=== PATIENT | female | born 1960 | race Caucasian/White ===

== ENCOUNTER 2017-09-07 19:19 | Emergency (ER) ==
[2017-09-07 19:26] VITALS: BP 111/70
== END 2017-09-07 20:35 | disposition left against medical advice (07) ==
LOC: ER 19:19
DX: Z53.21 Procedure and treatment not carried out due to patient leaving prior to being seen by health care provider (principal); M79.601 Pain in right arm

== ENCOUNTER 2017-09-08 06:11 | Emergency (ER) | payer MEDICARE, MEDICAID ==
--- NOTE | 2017-09-08 07:31 | ER Document Report ---
HPI - HPI Patient complains to provider of: Right shoulder pain Onset: Other - 3 weeks Onset/Duration: Persistent Pain Level: 4 Context: 56-year-old female complaining of persistent right shoulder pain since she fell 3 weeks ago. She is planning on going to [place] in several weeks. She lives in [place]. She had rotator cuff surgery in 2008 and is worried that she did something to her shoulder. She takes ibuprofen and Tylenol for pain. Associated Symptoms: None Exacerbated by: Movement - abduction Relieved by: Denies Similar symptoms previously: Yes Recently seen / treated by doctor: No - ROS ROS below otherwise negative: Yes Systems Reviewed and Negative: Yes All other systems reviewed and negative Past Medical History - General Information source: Patient - Social History Smoking Status: Unknown if Ever Smoked Frequency of alcohol use: None Drug Abuse: None Lives with: Family Family History: Reviewed & Not Pertinent - Medical History Medical History: Negative Past Surgical History: Reports: Hx Orthopedic Surgery - rotater cuff surgery in [place] 2008 Vertical Provider Document - CONSTITUTIONAL Agree With Documented VS: Yes Exam Limitations: No Limitations General Appearance: No Apparent Distress - INFECTION CONTROL TRAVEL OUTSIDE OF THE [place] IN LAST 30 DAYS: No - HEENT HEENT: Normocephalic - NECK Neck: Supple - RESPIRATORY O2 Sat by Pulse Oximetry: 99 - MUSCULOSKELETAL/EXTREMETIES Musculoskeletal/Extremeties: negative: Edema Notes: no deformity, limits abduction of right shoulder due to pain - NEURO Level of Consciousness: Awake, Alert, Appropriate Motor/Sensory: No Motor Deficit, No Sensory Deficit - DERM Integumentary: Warm, Dry Course - Re-evaluation Re-evalutation: 09/08/17 07:50 I looked her up on the [place] controlled substance website and she filled a prescription prescribed in [facility], for Vertussin AC 100 mL's September 06, 2017 in [facility]. She had clonazepam filled in June in [facility], prescribed in [place]. 09/08/17 08:35 X-ray is negative per radiologist - Vital Signs Vital signs: Temp Pulse Resp BP Pulse Ox 97.8 F 98 16 117/72 99 09/08/17 06:17 09/08/17 06:17 09/08/17 06:17 09/08/17 06:17 09/08/17 06:17 Discharge - Discharge Clinical Impression: chronic right shoulder pain Condition: Good Disposition: HOME, SELF-CARE Instructions: Exercise Program for the Shoulder ([facility]), Shoulder Injury ([facility]), Ultram ([facility]), Use of Zoti-Vos-Esappkg Ibuprofen ([facility]), Acetaminophen, Muscle Relaxers ([facility]) Additional Instructions: see physical therapy when you settle in [place] to get the range of motion back in your right shoulder Range of motion exercises to your right shoulders as discussed Warm compress Return to the emergency room any concerns Prescriptions: Promethazine HCl [Phenergan 25 mg Tablet] 25 mg PO Q4HP PRN #20 tablet PRN Reason: Cyclobenzaprine HCl [Flexeril 10 Mg Tablet] 10 mg PO TIDP PRN #20 tablet PRN Reason: Tramadol HCl [Ultram 50 mg Tablet] 50 mg PO ASDIR PRN #10 tablet PRN Reason:
--- NOTE | 2017-09-08 08:29 | RADIOLOGY REPORT (SQ) ---
EXAM DESCRIPTION: SHOULDER RIGHT 2 OR MORE VIEWS COMPLETED DATE/TIME: 09/08/2017 7:48 am REASON FOR STUDY: injury 3 weeks ago COMPARISON: None. NUMBER OF VIEWS: Three views. TECHNIQUE: Internal rotation, external rotation, and Y view images acquired of the right shoulder. LIMITATIONS: None. FINDINGS: MINERALIZATION: Normal. BONES: No acute fracture or dislocation. No worrisome bone lesions. JOINTS: No dislocation. VISUALIZED LUNGS AND RIBS: No pneumothorax. No rib fracture. SOFT TISSUES: Calcific tendinopathy. OTHER: No other significant finding. IMPRESSION: NO RADIOGRAPHIC EVIDENCE OF ACUTE INJURY. TECHNICAL DOCUMENTATION: JOB ID: [id number] [employer]- All Rights Reserved
[2017-09-08] MEDS ORDERED: ONDANSETRON 4 MG TAB.RAPDIS PO ONE (08:34)
[2017-09-08] MEDS ORDERED: ACETAMINOPHEN 325 MG TABLET PO ONE (08:34)
[2017-09-08] MEDS ORDERED: IBUPROFEN 800 MG TABLET PO ONE (08:34)
[2017-09-08 08:52] VITALS: BP 106/75
== END 2017-09-08 08:47 | disposition home or self-care (01) ==
LOC: ER 06:11
DX: M25.511 Pain in right shoulder (principal); W19.XXXA Unspecified fall, initial encounter; G89.29 Other chronic pain; Z98.890 Other specified postprocedural states
CPT/HCPCS: 99283; 73030; A9270 ×3; S0119

== ENCOUNTER 2017-10-05 14:55 | Emergency (ER) | payer MEDICARE, MEDICAID | END 2017-10-05 15:40 | disposition left against medical advice (07) | LOC: ER 14:55 | DX: Z53.21 Procedure and treatment not carried out due to patient leaving prior to being seen by health care provider (principal) ==

== ENCOUNTER 2017-10-06 19:54 | Emergency (ER) | payer MEDICARE, MEDICAID ==
[2017-10-06 20:56] VITALS: BP 103/78
[2017-10-06] MEDS ORDERED: HYDROCODONE/ACETAMINOPHEN 5-325 MG (6 TAB/ER DISP) PO PRN (23:04)
--- NOTE | 2017-10-06 23:08 | ER Document Report ---
HPI - HPI Patient complains to provider of: right arm and shoulder pain Pain Level: 5 Context: Patient is a 56-year-old female that comes emergency department for chief complaint of right arm and shoulder pain. She states that she has had injury to this before, physical therapy before, told she might need surgery. She states that she is here until the next couple of months and then she will be going back to [place] where she has her orthopedics. She states she is here tonight because she could not sleep for the past couple of days because of the discomfort in her shoulder with intermittent muscle spasms and tightness. She denies numbness, new injury, fever, or other complaints. She is taking over -the-counter anti-inflammatories and gabapentin. - MUSCULOSKELETAL Musculoskeletal: REPORTS: Extremity pain - R shoudler/arm Past Medical History - General Information source: Patient - Social History Smoking Status: Current Every Day Smoker Chew tobacco use (# tins/day): No Smoking Education Provided: Yes - <3 min Frequency of alcohol use: None Drug Abuse: None Family History: Reviewed & Not Pertinent Patient has suicidal ideation: No Patient has homicidal ideation: No Renal/ Medical History: Denies: Hx Peritoneal Dialysis Past Surgical History: Reports: Hx Orthopedic Surgery - rotater cuff surgery in [place] 2008 Vertical Provider Document - CONSTITUTIONAL General Appearance: WD/WN. negative: No Apparent Distress - Patient appears to be in some discomfort, has trouble getting comfortable, tries to reposition her right arm and shoulder frequently - INFECTION CONTROL TRAVEL OUTSIDE OF THE [place] IN LAST 30 DAYS: No - HEENT HEENT: Atraumatic, Normal ENT Exam, Normocephalic - NECK Neck: Normal Inspection - RESPIRATORY Respiratory: Breath Sounds Normal, No Respiratory Distress O2 Sat by Pulse Oximetry: 96 - CARDIOVASCULAR Cardiovascular: Regular Rate, Regular Rhythm - GI/ABDOMEN Gastrointestinal: Abdomen Soft, Abdomen Non-Tender - BACK Back: Normal Inspection - MUSCULOSKELETAL/EXTREMETIES Musculoskeletal/Extremeties: Tender - Tender over the right posterior rotator cuff generally, supraspinatus area, and also AC joint area. Positive speeds test. Normal board design engineer, normal sensation, normal capillary refill, range of motion intact although painful. Normal upper extremity exam otherwise. Course - Re-evaluation Re-evalutation: Patient with recent x-ray showing calcific tendinosis. No recent traumatic changes. Patient has orthopedics back in [place], she should be O to see them in a couple of months, she actually has an MRI scheduled as well. Informed her to try to get it here and have them receive it, she states she will try to do this. She requests Flexeril and something for pain. She was given a small dose of pain medication with Flexeril. She is to continue her anti-inflammatory and gabapentin. She states she will take it to help her sleep , she does already have physical therapy tools and instructions and she states she will be using them. - Vital Signs Vital signs: Temp Pulse Resp BP Pulse Ox 97.9 F 97 16 103/78 96 10/06/17 20:49 10/06/17 20:49 10/06/17 20:49 10/06/17 20:49 10/06/17 20:49 Discharge - Discharge Clinical Impression: Right shoulder pain Condition: Stable Disposition: HOME, SELF-CARE Additional Instructions: Examinations as bicep tendinitis along with your ongoing rotator cuff injuries. Ice to the shoulder 3-4 times a day, continue ibuprofen, use your sling for comfort but remember to perform range of motion frequently. Take medications as prescribed, however you need orthopedic follow-up for your ongoing rotator cuff issues. Return for any concerning symptoms including swelling, redness, numbness, or any other concerning symptoms. Prescriptions: Cyclobenzaprine HCl [Flexeril 5 mg Tablet] 1 - 2 tab PO TID PRN #30 tablet PRN Reason: Hydrocodone/Acetaminophen [[place] 5-325 mg Tablet] 1 tab PO ASDIR #8 tablet Referrals: JOSÉ QUINN MD [ACTIVE STAFF] - Follow up in 3-5 days
== END 2017-10-06 23:46 | disposition home or self-care (01) ==
LOC: ER 19:54
DX: M25.511 Pain in right shoulder (principal); M79.601 Pain in right arm; F17.200 Nicotine dependence, unspecified, uncomplicated
CPT/HCPCS: 99283; A9270

== ENCOUNTER 2017-10-09 19:29 | Emergency (ER) | payer MEDICARE, MEDICAID ==
[2017-10-09 20:15] VITALS: BP 107/77
== END 2017-10-09 22:49 | disposition left against medical advice (07) ==
LOC: ER 19:29
DX: Z53.21 Procedure and treatment not carried out due to patient leaving prior to being seen by health care provider (principal)